=== PATIENT | female | born 1990 | race African-American/Black ===

== ENCOUNTER 2018-07-01 10:37 | Emergency (ER) | payer OTHER ==
[2018-07-01 10:49] VITALS: BP 121/66
[2018-07-01 11:21] LABS: BILIRUBIN,URINE NEGATIVE (NEGATIVE); CLARITY,URINE CLEAR (CLEAR); GLUCOSE, URINE (UA) NEGATIVE (NEGATIVE); KETONES,URINE (UA) NEGATIVE (NEGATIVE); LEUKOCYTE ESTERASE, URINE NEGATIVE (NEGATIVE); NITRITE,URINE NEGATIVE (NEGATIVE); OCCULT BLOOD,URINE NEGATIVE (NEGATIVE); PH,URINE 6.5 PH (5.0-7.5); PROTEIN,URINE NEGATIVE (NEGATIVE); UROBILINOGEN,URINE 0.2 (NORMAL) E.U./dL (NORMAL)
== END 2018-07-01 13:55 | disposition left against medical advice (07) ==
LOC: ED 10:37
DX: Z53.21 Procedure and treatment not carried out due to patient leaving prior to being seen by health care provider (principal)
CPT/HCPCS: 81001; 81003; 87086

== ENCOUNTER 2019-09-01 15:41 | Emergency (ER) | payer OTHER ==
[2019-09-01 16:52] LABS: BASOPHILS % (AUTO) 0.3 %; EOSINOPHILS # (AUTO) 0.1 10^3/uL (0.0-0.7); EOSINOPHILS % (AUTO) 1.6 %; HGB - HEMOGLOBIN 13.4 g/dL (12.0-16.0); LYMPHOCYTES # (AUTO) 0.9 10^3/uL (1.5-3.5); LYMPHOCYTES % (AUTO) 22.8 %; MEAN CORPUSCULAR HEMOGLOBIN 29.8 pg (27.0-31.0); MEAN CORPUSCULAR HGB CONC 32.1 g/dL (32.0-36.0); MEAN CORPUSCULAR VOLUME 92.9 fL (81.0-99.0); MEAN PLATELET VOLUME 9.9 fL (7.9-10.8); MONOCYTES # (AUTO) 0.3 10^3/uL (0.0-1.0); MONOCYTES % (AUTO) 6.9 %; NEUTROPHILS # (AUTO) 2.6 10^3/uL (1.5-6.6); NEUTROPHILS % (AUTO) 67.9 %; PLT - PLATELET COUNT 280 10^3/uL (130-450); RED BLOOD COUNT 4.49 10^6/uL (4.20-5.40); RED CELL DISTRIBUTION WIDTH 13.6 % (12.0-15.0); WHITE BLOOD COUNT 3.8 x10^3/uL (4.8-10.8)
[2019-09-01 17:05] LABS: ALBUMIN 4.1 g/dL (3.2-5.5); ALBUMIN/GLOBULIN RATIO 1.2 (1.0-2.2); BILIRUBIN,TOTAL 0.7 mg/dL (0.2-1.0); CREATININE 0.6 mg/dL (0.4-1.0); TOTAL PROTEIN 7.6 g/dL (6.7-8.2)
[2019-09-01 17:57] LABS: BILIRUBIN,URINE NEGATIVE (NEGATIVE); GLUCOSE, URINE (UA) NEGATIVE (NEGATIVE); KETONES,URINE (UA) NEGATIVE (NEGATIVE); LEUKOCYTE ESTERASE, URINE NEGATIVE (NEGATIVE); NITRITE,URINE NEGATIVE (NEGATIVE); OCCULT BLOOD,URINE NEGATIVE (NEGATIVE); PROTEIN,URINE NEGATIVE (NEGATIVE); UROBILINOGEN,URINE 0.2 (NORMAL) E.U./dL (NORMAL)
[2019-09-01 17:59] VITALS: BP 126/71
[2019-09-01 17:59] LABS: CLARITY,URINE CLEAR (CLEAR); HCG UR QUAL NEGATIVE
--- NOTE | 2019-09-01 18:19 | ED Physician Documentation ---
History of Present Illness - Stated complaint Stated Complaint: AB PX - Chief complaint Chief Complaint: Abd Pain - Additonal information Additional information: This is a 28-year-old female who presents with abdominal discomfort. For the l ast 24 hours she has had left upper quadrant crampy abdominal pain that has been associate with some nausea and episodes of diarrhea. She has had exposure to someone with gastroenteritis-like symptoms, With abdominal cramping, vomiting, and diarrhea. Patient has not had any fever. She denies any dysuria, no lower nominal discomfort. Her pain is not related to eating food. She has been able to eat, her appetite is slightly reduced. No blood in her stool. 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 - Present Medications Home Medications: Ambulatory Orders Medication Instructions Recorded Confirmed Dicyclomine [Bentyl] 10 mg PO TID PRN #15 capsule 09/01/19 Ondansetron Odt [Zofran] 4 mg TL Q6H PRN #10 tablet 09/01/19 - Allergies Allergies/Adverse Reactions: Allergies Allergy/AdvReac Type Severity Reaction Status Date / Time No Known Drug Allergies Allergy Verified 09/01/19 16:00 - Social History Does the pt smoke?: No Smoking Status: Never smoker Does the pt drink ETOH?: Yes Does the pt have substance abuse?: No - Immunizations Immunizations are current?: Yes - POLST Patient has POLST: No PD ED PE NORMAL - Vitals Vital signs reviewed: Yes - General General: Alert and oriented X 3, No acute distress - HEENT HEENT: PERRL - Neck Neck: Supple, no meningeal sign - Cardiac Cardiac: RRR, No murmur - Respiratory Respiratory: Clear bilaterally - Abdomen Abdomen: Normal bowel sounds, Soft, Other (Mild tenderness to palpation in the left upper quadrant, but only with deep palpation. There is no midepigastric, no right upper quadrant pain, negative Hood sign. No right lower quadrant tenderness. No guarding.) - Derm Derm: Warm and dry - Extremities Extremities: No deformity - Neuro Neuro: Alert and oriented X 3 - Psych Psych: Normal mood, Normal affect Results - Vitals Vitals: Vital Signs - 24 hr 09/01/19 09/01/19 15:56 17:57 Temperature 37.1 C 37.1 C Heart Rate 86 85 Respiratory 18 18 Rate Blood Pressure 143/72 H 126/71 O2 Saturation 98 97 Oxygen O2 Source Room air - Labs Labs: Laboratory Tests 09/01/19 09/01/19 09/01/19 16:48 16:48 17:50 WBC 3.8 L RBC 4.49 Hgb 13.4 Hct 41.7 MCV 92.9 MCH 29.8 MCHC 32.1 RDW 13.6 Plt Count 280 MPV 9.9 Neut # (Auto) 2.6 Lymph # (Auto) 0.9 L Hunt # (Auto) 0.3 Eos # (Auto) 0.1 Baso # (Auto) 0.0 Absolute Nucleated RBC 0.00 Nucleated RBC % 0.0 Sodium 137 Potassium 3.4 L Chloride 103 Carbon Dioxide 25 Anion Gap 9.0 BUN 11 Creatinine 0.6 Estimated GFR (MDRD) 143 Glucose 93 Calcium 9.0 Total Bilirubin 0.7 AST 23 ALT 25 Alkaline Phosphatase 69 Total Protein 7.6 Albumin 4.1 Globulin 3.5 Albumin/Globulin Ratio 1.2 Lipase 30 Urine Color YELLOW Urine Clarity CLEAR Urine pH 6.0 Ur Specific [place] 1.015 Urine Protein NEGATIVE Urine Glucose (UA) NEGATIVE Urine Ketones NEGATIVE Urine Occult Blood NEGATIVE Urine Nitrite NEGATIVE Urine Bilirubin NEGATIVE Urine Urobilinogen 0.2 (NORMAL) Ur Leukocyte Esterase NEGATIVE Ur Microscopic Review NOT INDICATED Urine Culture Comments NOT INDICATED Urine HCG, Qual NEGATIVE PD MEDICAL DECISION MAKING - ED course Complexity details: considered differential (Gastroenteritis, pancreatitis, pyelonephritis, gastritis) ED course: On arrival patient is very well-appearing, vital signs are unremarkable, her abdominal exam is quite benign, she has some mild tenderness in the left upper quadrant. Labs are drawn she has a slight leukopenia at 3.8, we do not have past values for comparison. Remainder of her blood counts are unremarkable. Her abdominal panel is unremarkable, there is a normal lipase, normal LFTs. Her urine is negative for infection, her hCG is also negative. Given her exposure to someone with gastroenteritis and her symptoms, I do feel like gastroenteritis is most likely. She does not have any focal tenderness in the right upper quadrant or lower quadrant. Her vital signs are reassuring her exam is unremarkable, and do not see signs of acute abdominal pathology at this time. I discussed careful observation with the patient, prescribed her Zofran, and discussed return precautions if she has worsening pain, pain that changes, or she is having other concerning symptoms. Patient agreed and was discharged home in the care of family Departure - Departure Disposition: Home, Self Care Clinical Impression: Abdominal pain Qualifiers: Abdominal location: left upper quadrant Qualified Code(s): R10.12 - Left upper quadrant pain Condition: Good Instructions: ED Abdominal Pain Unkn Cause Follow-Up: Ela Veloz MD [Primary Care Provider] - Within 1 week Prescriptions: Dicyclomine [Bentyl] 10 mg PO TID PRN #15 capsule PRN Reason: Abdominal Pain Ondansetron Odt [Zofran] 4 mg TL Q6H PRN #10 tablet PRN Reason: Nausea / Vomiting Comments: You were seen today for abdominal pain. Given your nausea or diarrhea and the location of your pain I think is likely you have a gastroenteritis. Your labs are reassuring at this time, your urine does not show signs of infection. If you are having worsening symptoms such as severe abdominal pain, pain that localizes to your right upper abdomen or right lower abdomen, blood in your vomit or stool, or vomiting despite the Zofran, return to the emergency department. Otherwise please follow-up with your primary care provider. Discharge Date/Time: 09/01/19 18:29
== END 2019-09-01 18:29 | disposition home or self-care (01) ==
LOC: ED 15:41
DX: R10.12 Left upper quadrant pain (principal); R11.0 Nausea; R19.7 Diarrhea, unspecified; D72.819 Decreased white blood cell count, unspecified
CPT/HCPCS: 36415; 80053; 81001; 81003; 81025; 83690; 85025; 87086; 99283

== ENCOUNTER 2020-04-21 19:27 | Outpatient (CLI) | payer OTHER | END 2020-04-21 19:28 | disposition home or self-care (01) | LOC: SC 19:27 | PROVIDERS: ATTEND Internal Medicine Pulmonary Disease | DX: R06.83 Snoring (principal); G47.10 Hypersomnia, unspecified; R41.89 Other symptoms and signs involving cognitive functions and awareness; G47.8 Other sleep disorders; R06.81 Apnea, not elsewhere classified | CPT/HCPCS: 95810 ==

== ENCOUNTER 2020-05-10 14:19 | Outpatient (CLI) | payer OTHER ==
--- NOTE | 2020-05-10 14:44 | SLEEP CARE CONSULTATION ---
Information from patient questionnaire entered by Rosita Quinonez. I have reviewed and concur with the information entered by Rosita Quinonez. This document represents the service I personally performed and the decisions made by me, Kayce Villa MD, [facility]. History of Present Illness Service Date and Time: 05/10/2020 1419 Initial [place] Sleepiness Scale score: 8 (in 2019) Current [place] Sleepiness Scale score: 10 Additional HPI information: HPI: Ms. Mary returned for a follow up of the sleep study she had on 04/21/2020. The polysomnography showed that the patient had normal sleep efficiency. The sleep architecture was normal as well. Respiratory monitoring showed no significant sleep disordered breathing (AHI = 4.2) or hypoxia (weston oxygen saturation of 91%). The few respiratory events occurred almost exclusively during supine sleep (supine AHI = 18.0; non-supine = 1.58). Snore was moderate to loud in intensity. There was no significant periodic leg movement of sleep. Cardiac rhythm was normal sinus rhythm without significant arrhythmia. No abnormal behavior (parasomnia) observed during the night. The patient was informed of these findings. I explained to her that the sleep study was normal overall. Sleep Study - Results Type of Sleep Study: Polysomnography Prior sleep studies: No Allergies and Home Medications Drug allergies reviewed: Yes Home medication list reviewed: Yes Physical Exam Height: 5 ft 5 in Weight: 175 lb Body Mass Index: 29.1 BMI Classification: Overweight Impression and Plan IMPRESSION: 1. Primary Snore (ICD-10 R06.83), light to loud, but no significant sleep disordered breathing except when the patient slept supine. The patient is recommended to avoid sleeping supine. She states that she might soon have to sleep on her back because she is developing some nerve problem in her arm. PLAN: 1. Avoid sleeping supine. 2. Avoid weight and avoid alcohol consumption near bedtime. 3 Return for follow up on as needed basis. Return if she gains weight or has to sleep on her back at night. Visit Type: In Office Provider Statement: I spent 100% of the Face to Face Visit with the patient with greater than 50% spent counseling the patient and coordination of care.
== END 2020-05-10 14:20 | disposition home or self-care (01) ==
LOC: SC 14:19
PROVIDERS: ATTEND Internal Medicine Pulmonary Disease
DX: R06.83 Snoring (principal); E66.3 Overweight; Z68.29 Body mass index [BMI] 29.0-29.9, adult
CPT/HCPCS: 99212; 99213

== ENCOUNTER 2020-06-14 16:37 | Outpatient (CLI) | payer OTHER | END 2020-06-14 16:38 | disposition home or self-care (01) | LOC: COV 16:37 | PROVIDERS: ATTEND Family Medicine | DX: R05 Cough (principal); M79.10 Myalgia, unspecified site; R53.83 Other fatigue; J02.9 Acute pharyngitis, unspecified; R09.81 Nasal congestion; Z20.828 Contact with and (suspected) exposure to other viral communicable diseases ==

== ENCOUNTER 2021-03-22 15:56 | Emergency (ER) | payer OTHER ==
--- NOTE | 2021-03-22 16:16 | ED Physician Documentation ---
PD HPI HEENT - Stated complaint Stated Complaint: FOREIGN BODY IN THROAT - Chief complaint Chief Complaint: Heent - History obtained from History obtained from: Patient - Additional information Additional information: About 4 days ago felt like a fishbone got stuck on the right side of her throat but then subsequently passed it. 2 days ago started developed a sore throat and fullness in the throat and she wonders if there might still be something there. She is also had chills with this. Tested Covid and got results today which were negative. 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 - Present Medications Home Medications: Ambulatory Orders Medication Instructions Recorded Confirmed Sertraline [Zoloft] 50 mg PO DAILY 03/22/21 03/22/21 - Allergies Allergies/Adverse Reactions: Allergies Allergy/AdvReac Type Severity Reaction Status Date / Time No Known Drug Allergies Allergy Verified 03/22/21 15:59 - Social History Does the pt smoke?: No Smoking Status: Never smoker Does the pt drink ETOH?: Yes Does the pt have substance abuse?: No - Immunizations Immunizations are current?: Yes - POLST Patient has POLST: No PD ED PE NORMAL - Vitals Vital signs reviewed: Yes - General General: Alert and oriented X 3, No acute distress - HEENT HEENT: Other (Exudative tonsillitis with moderate anterior cervical adenopathy) - Neck Neck: Supple, no meningeal sign, No bony TTP - Neuro Neuro: Alert and oriented X 3, Normal speech Results - Vitals Vitals: Vital Signs - 24 hr 03/22/21 03/22/21 15:59 17:06 Temperature 36.6 C 37.7 C Heart Rate 98 95 Respiratory 16 16 Rate Blood Pressure 140/77 H 128/80 O2 Saturation 99 99 Oxygen O2 Source Room air - Labs Labs: Laboratory Tests 03/22/21 16:35 Group A Strep Rapid Negative - Rads (name of study) Soft tissue neck x-ray Radiology: EMP read contemporaneously PD MEDICAL DECISION MAKING - ED course ED course: The time course and appearance of her throat would suggest more of an infectious etiology for the pharyngitis than traumatic. Departure - Departure Disposition: 01 Home, Self Care Clinical Impression: Acute pharyngitis Qualifiers: Pharyngitis/tonsillitis etiology: unspecified etiology Qualified Code(s): J02.9 - Acute pharyngitis, unspecified Condition: Good Record reviewed to determine appropriate education?: Yes Instructions: ED Pharyngitis Viral Report Pending Comments: As discussed, your rapid strep test is negative, I would not be surprised if the culture grows strep though and in that case we will call you in a couple of days call you in antibiotics. In the meantime Tylenol and/or ibuprofen as needed for the pain. Discharge Date/Time: 03/22/21 17:23
--- NOTE | 2021-03-22 16:37 | XRAY Report ---
PROCEDURE: Neck Soft Tissue INDICATIONS: POSS FISHBONE / FB SENSATION TECHNIQUE: 2 views of the neck were acquired. COMPARISON: None FINDINGS: Airway: The airway appears patent. Soft tissues: Prevertebral soft tissues are normal in thickness. The epiglottis and aryepiglottic f olds appear normal. No soft tissue gas. Bones: No suspicious bony lesions. Visualized cervical spine is normally aligned. No radiodense for eign body identified. IMPRESSION: No radiodense foreign body identified. If there is continued clinical concern for swallowed foreign b jodee, CT scan of the neck should be considered for further evaluation. Reviewed by: Serenity Carmona MD, PhD on 03/22/2021 4:36 PM PDT Approved by: Serenity Carmona MD, PhD on 03/22/2021 4:36 PM PDT Station ID: [id number]
[2021-03-22 16:47] LABS: RAPID STREP SCREEN Negative (Negative)
[2021-03-22 17:07] VITALS: BP 128/80
== END 2021-03-22 17:23 | disposition home or self-care (01) ==
LOC: ED 15:56
DX: J02.9 Acute pharyngitis, unspecified (principal)
CPT/HCPCS: 87070; 87077; 87430; 99283

== ENCOUNTER 2021-08-28 08:00 | Outpatient (CLI) | payer OTHER | END 2021-08-28 23:59 | LOC: LAB.N 08:00 | PROVIDERS: ATTEND Registered Nurse | DX: J02.9 Acute pharyngitis, unspecified (principal); R09.81 Nasal congestion; Z20.822 Contact with and (suspected) exposure to COVID-19 | CPT/HCPCS: 87070; 87275; 87276 ==

== ENCOUNTER 2021-12-19 17:25 | Emergency (ER) | payer OTHER ==
[2021-12-19] MEDS ORDERED: PSEUDOEPHEDRINE 30 MG TABLET PO STA (17:45)
[2021-12-19] MEDS ORDERED: SUMAtriptan 6 MG/0.5 ML VIAL SUBQ STA (17:45)
--- NOTE | 2021-12-19 17:56 | ED Physician Documentation ---
PD HPI HEADACHE - Stated complaint Stated Complaint: HEADACHE - Chief complaint Chief Complaint: Neuro - History obtained from History obtained from: Patient - History of Present Illness Timing - onset: How many weeks ago (2) Timing - onset during: Rest Timing - duration: Weeks (2) Timing - details: Gradual onset Pain level max: 8 Pain level now: 3 Location: Front Quality: Throbbing, Aching. No: Thunderclap, Like head is exploding Associated symptoms: Nausea. No: Fever, Stiff neck, Vomiting, Weakness, Numbness, Syncope, Seizure, Eye pain, Vision changes Improved by: Rest Worsened by: Other (bending over, coughing, sneezing.) Contributing factors: No: Anticoagulated, Possible carbon monoxide, Hypertension, Recent illness, Trauma Similar symptoms before: Diagnosis (has had migraines, this feels different.) Review of Systems Constitutional: denies: Fever, Chills Nose: reports: Sinus pressure / pain. 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 - Present Medications Home Medications: Ambulatory Orders Medication Instructions Recorded Confirmed Sertraline [Zoloft] 50 mg PO DAILY 03/22/21 12/19/21 Norelgestromin/Ethin.estradiol 1 patch TD Q7D 12/19/21 12/19/21 [Xulane 150-35 Mcg/Day Patch] buPROPion [Wellbutrin Sr] 100 mg PO DAILY 12/19/21 12/19/21 - Allergies Allergies/Adverse Reactions: Allergies Allergy/AdvReac Type Severity Reaction Status Date / Time No Known Drug Allergies Allergy Verified 12/19/21 17:32 - Social History Does the pt smoke?: No Smoking Status: Never smoker Does the pt drink ETOH?: Yes Does the pt have substance abuse?: No - Immunizations Immunizations are current?: Yes - POLST Patient has POLST: No PD ED PE NORMAL - Vitals Vital signs reviewed: Yes - General General: Alert and oriented X 3, No acute distress - HEENT HEENT: Atraumatic, PERRL, Ears normal, Moist mucous membranes, Pharynx benign, Other (Tender palpation over the frontal sinuses.) - Neck Neck: Supple, no meningeal sign - Cardiac Cardiac: RRR, Strong equal pulses - Respiratory Respiratory: No respiratory distress, Clear bilaterally - Abdomen Abdomen: Soft, Non tender, Non distended - Derm Derm: Warm and dry, No rash - Extremities Extremities: No edema - Neuro Neuro: Alert and oriented X 3, 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, No motor deficit, No sensory deficit, Normal speech, Other (Normal cerebellar test) Eye Opening: Spontaneous Motor: Obeys Commands Verbal: Oriented GCS Score: 15 - Psych Psych: Normal mood, Normal affect Results - Vitals Vitals: Vital Signs - 24 hr 12/19/21 12/19/21 17:29 17:32 Temperature 36.3 C L 36.5 C Heart Rate 84 84 Respiratory 16 16 Rate Blood Pressure 143/90 H 143/90 H O2 Saturation 100 100 Oxygen O2 Source Room air - Rads (name of study) Head CT Radiology: Final report received, EMP read contemporaneously, See rad report (No acute abnormality) PD MEDICAL DECISION MAKING - ED course Complexity details: reviewed results, re-evaluated patient, considered differential, d/w patient ED course: Headache resolved with Imitrex and pseudoephedrine. Head CT does not show any acute abnormalities. No evidence of tumor, mass, infection, subarachnoid hemorrhage. She has an appoint with her doctor in 3 days. She will continue Motrin and Tylenol as needed. She will follow-up with her doctor for further care. Patient counseled regarding signs and symptoms for which I believe and urgent re-evaluation would be necessary. Patient with good understanding of and agreement to plan and is comfortable going home at this time This document was made in part using voice recognition software. While efforts are made to proofread this document, sound alike and grammatical errors may occur. Departure - Departure Disposition: 01 Home, Self Care Clinical Impression: Headache Qualifiers: Headache type: unspecified Headache chronicity pattern: unspecified pattern Intractability: not intractable Qualified Code(s): R51.9 - Headache, unspecified Condition: Good Instructions: ED Cephalgia Unspecified Follow-Up: Ela Veloz MD [Primary Care Provider] - Within 1 week Comments: Your head CT does not show any acute abnormalities today. Your headache seems to have resolved with pseudoephedrine and Imitrex. This could be a migraine type headache, but it could also be related to acute sinus inflammation. Please follow-up with your doctor for further care. Return if you worsen.
--- NOTE | 2021-12-19 18:39 | CT Report ---
PROCEDURE: HEAD WO INDICATIONS: frontal headache x 2 weeks TECHNIQUE: Noncontrast 4.5 mm thick angled axial sections acquired from the foramen magnum to the vertex. For r adiation dose reduction, the following was used: automated exposure control, adjustment of mA and/or kV according to patient size. COMPARISON: None. FINDINGS: Image quality: Excellent. CSF spaces: Basal cisterns are patent. No extra-axial fluid collections. Ventricles are normal in size and shape. Brain: No midline shift. No intracranial masses or hemorrhage. Carrion-white matter interface is norm al. Skull and face: Calvarium and visualized facial bones are intact, without suspicious lesions. Sinuses: Visualized sinuses and mastoids are clear. IMPRESSION: 1. No acute intracranial process. Reviewed by: Ashely Fontenot MD on 12/19/2021 5:38 PM AKARNULFO Approved by: Ashely Fontenot MD on 12/19/2021 5:38 PM AKARNULFO Station ID: [id number]
[2021-12-19 18:54] VITALS: BP 130/88
== END 2021-12-19 18:53 | disposition home or self-care (01) ==
LOC: ED 17:25
DX: R51.9 Headache, unspecified (principal)
CPT/HCPCS: 70450; 96372; 99282; 99284; A9270

== ENCOUNTER 2023-03-12 16:06 | Outpatient (CLI) | payer OTHER ==
--- NOTE | 2023-03-12 16:38 | Sleep Patient Instructions ---
Sleep Center Visit Summary - Patient Visit Information Reason for Visit: Followup in Sleep Center - Patient Instructions Instructions Attached: Sleep Study, Sleep Clinic Visit, Sleep Study Home Monitor Additional Instructions: You will be completing a sleep study, either an in-lab polysomnography (PSG) or home sleep study (HST). You will follow-up in the sleep care office after the sleep study is completed to hear the results and talk about therapy, if needed. You will be called by our office staff to schedule this appointment, but you may contact us with any questions. - Clinic Information Contact: [facility] [address] [place] [address] [email or web address] T: [phone]
--- NOTE | 2023-03-12 16:45 | SLEEP CARE CONSULTATION ---
Information from patient questionnaire entered by Raya Tolentino. I have reviewed and concur with the information entered by Raya Tolentino. This document represents the service I personally performed and the decisions made by , Vashti Willoughby ARNP. History of Present Illness Service Date and Time: 03/12/2023 1606 Reason for follow up: annual (LAST SEEN 04/2020 NO CPAP) Prior sleep studies: No Type of Sleep Study: Polysomnography HPI additional information: SELAM GALVEZ was last seen in April 2020 following a sleep study showing no significant sleep disordered breathing (AHI 4.2, weston 91% and supine AHI 18) and returned today for annual follow-up. Her current complaint is snoring, observed pauses in breathing, unrefreshed sleep. The patient tells me that she normally goes to bed around 9-10:30 pm, and it takes her approximately 3-5 minutes to fall asleep. She has= been told that she snores loudly and irregularly at night. She has been observed to stop breathing in her sleep. Her bed partner can still sleep in the same bed. She can recall waking up on the average of 2 times during the night. Most of the time she wakes up because of bathroom. She has not awakened for her own snoring, choking, and having to gasp for air. There is not a lot of tossing and turning in her sleep. Generally she can recall having dreams. She usually wakes up at 0500 and does not feel refreshed. She usually does not have a morning headache. During the day she complains of feeling sleepy and fatigued. She has fallen asleep while driving and has gone out of the heather, no accident. She usually does not take naps during the day. If she naps, upon falling asleep during the day she denies having vivid dreams. She reports having impaired concentration during the day. There is no somniloquy (sleep talking) or somnambulism (sleep walking). She has never experienced sleep paralysis, cataplexy, or symptoms of restless leg syndrome. Sleep Study - Results Type of Sleep Study: Polysomnography Prior sleep studies: No Subjective Initial [place] Sleepiness Scale score: 8 (in 2019) Current [place] Sleepiness Scale score: 15 (03/12/23) Allergies and Home Medications Known drug allergies: No Drug allergies reviewed: Yes Home medication list reviewed: Yes (Sertraline 100 mg daily) Allergy and home medication list: Allergies No Known Drug Allergies Allergy (Verified 03/11/23 15:36) Review of Systems Review of systems same as previous: No (anxiety) Weight gain over past 5 years: 25 Cardiovascular: denies: high blood pressure Gastrointestinal: denies: heartburn Neurological: denies: headaches Psychiatric: denies: depression Ear/Nose/Throat: reports: wisdom teeth removed. denies: tonsillectomy Immunologic: reports: allergies to food or environment (bee stings, nickel) Physical Exam Vital signs obtained and entered by: RAYA Reyes MA Blood Pressure: 124/68 (LEFT ARM) Cuff size: regular Heart Rate: 66 O2 Saturation: 99 Height: 5 ft 5 in Weight: 194 lb 3.2 oz Body Mass Index: 32.3 BMI Classification: Obese Impression and Plan 1. Suspected Obstructive Sleep Apnea-Hypopnea Syndrome, as loud and irregular snoring, observed cessation of breath while asleep, gasping or choking in sleep and unrefreshed sleep. She states her symptoms have not improved and she has gained 25 pounds. I recommend proceeding to polysomnography to confirm the diagnosis and to assess severity. If the patient has significant sleep disordered breathing, a manual CPAP titration study will also be performed to find the optimal treatment pressure. I informed the patient of what the sleep studies involve and after some discussion, obtained agreement to proceed. The pathophysiology of obstructive sleep apnea-hypopnea syndrome was discussed with the patient and health risks of cardiovascular and cerebrovascular disease if not treated. Risks of drowsy driving discussed in detail and patient advised to avoid long distance driving and to nail puller at the first sign of drowsiness. Patient agreed to plan. 2. Obesity, unspecified. Currently patients BMI is 32.3. Obesity increases the risk of apnea, CPAP pressure requirements and overall health risks especially cardiovascular and diabetes. Thus patient is advised to lose weight. * Schedule polysomnography * Avoid long distance driving or driving when feeling sleepy. * Avoid alcohol, sedative and muscle relaxant around bedtime. * Attempt to lose weight. * Review instructions provided by trained office staff on how to prepare for the sleep study. * Return for follow-up after sleep study completed. Counseling Topics: Weight loss health impact Visit Type: In Office Time Spent with Patient (minutes): 21 Provider Statement: I spent 100% of the Face to Face Visit with the patient with greater than 50% spent counseling the patient and coordination of care.
[2023-03-12 16:58] VITALS: BP 124/68
== END 2023-03-12 16:07 | disposition home or self-care (01) ==
LOC: SC 16:06
PROVIDERS: ATTEND Nurse Practitioner Family
DX: R06.83 Snoring (principal); R06.81 Apnea, not elsewhere classified; G47.8 Other sleep disorders; E66.9 Obesity, unspecified; Z68.32 Body mass index [BMI] 32.0-32.9, adult
CPT/HCPCS: 99212; 99213

== ENCOUNTER 2023-04-08 20:55 | Outpatient (CLI) | payer OTHER | END 2023-04-08 20:56 | disposition home or self-care (01) | LOC: SC 20:55 | PROVIDERS: ATTEND Nurse Practitioner Family | DX: G47.33 Obstructive sleep apnea (adult) (pediatric) (principal) | CPT/HCPCS: 95810 ==

== ENCOUNTER 2023-05-01 16:13 | Outpatient (CLI) | payer OTHER ==
--- NOTE | 2023-05-01 16:00 | SLEEP CARE CONSULTATION ---
Information from patient questionnaire entered by Raya Tolentino. I have reviewed and concur with the information entered by Raya Tolentino. This document represents the service I personally performed and the decisions made by me, Vashti Willoughby ARNP. History of Present Illness Service Date and Time: 05/01/2023 1540 Initial [place] Sleepiness Scale score: 8 (in 2019) Current [place] Sleepiness Scale score: 14 Additional HPI information: SELAM GALVEZ returns via video telehealth visit for follow up and results of the recently performed polysomnography. Her sleep study showed severe obstructive sleep apnea with an average AHI of 35.4 and weston oxygen saturation of 83%. I explained the pathophysiology behind obstructive sleep apnea. We then spent quite a bit of time discussing different treatment options. For mild obstructive sleep apnea, surgery and oral appliance are alternatives to nasal CPAP therapy but in moderate or severe cases, nasal CPAP is the most effective and reliable treatment. I reviewed the impact of weight changes on sleep apnea and strongly recommended losing weight. After some discussion, the patient opted to go with the nasal CPAP therapy. Nasal autoCPAP set at 4-15 cmH20 will be ordered with rationale explained. A manual titration study will be ordered if unable to find optimal pressure with office adjustments. I explained how CPAP machine works and what to expect when using the machine. Using CPAP every night in order to get used to it was emphasized. Patient advised to put CPAP mask on before getting into bed so as not to fall asleep without CPAP. To assist acclimation to CPAP use, it could also be used for a short time during day while reading or watching TV. The patient was instructed to call the CPAP supplier to discuss any mechanical problem that may occur. If the mask given is uncomfortable or is difficult to keep on through the night even with adjustment, contact the CPAP supplier as many will replace with another mask style if notified before 30 days. If snoring or perceives is not getting enough air or too much air from the machine, notify this office. Patient counseled not drink alcohol less than 4 hours before bedtime as it can increase snoring and apnea. Patient was cautioned about risks of drowsy driving until sleepiness symptoms resolve. Sleep Study - Results Type of Sleep Study: Polysomnography (COMPLETED 04/08/23) Prior sleep studies: No Polysomnography/Home Sleep Study results: IMPRESSION: The quality of the study is good. The patient had normal sleep efficiency. The sleep architecture was abnormal for sleep fragmentation and reduced amount of time spent in slow wave sleep (N3).. Respiratory monitoring showed severe obstructive sleep apnea-hypopnea (AHI = 35.4) associated with frequent arousals, oxyhemoglobin desaturation and mild hypoxia (weston oxygen saturation of 83%). The patient did not sleep supine during this study (supine AHI = N/A; non-supine = 35.38). Snore was moderate to loud in intensity. There was no significant periodic leg movement of sleep. Cardiac rhythm was normal sinus rhythm without significant arrhythmia. No abnormal behavior (parasomnia) observed during the night. Allergies and Home Medications Known drug allergies: No (allergies as listed) Drug allergies reviewed: Yes Home medication list reviewed: Yes (no changes) Allergy and home medication list: Allergies nickel Allergy (Verified 04/30/23 14:22) BEE STING Allergy (Uncoded 04/30/23 14:22) Review of Systems Review of systems same as previous: Yes (no changes) Physical Exam Vital signs obtained and entered by: RAYA Reyes MA Height: 5 ft 5 in Weight: 190 lb Body Mass Index: 31.6 BMI Classification: Obese Impression and Plan 1. Obstructive Sleep Apnea-Hypopnea Syndrome, severe, with lowest oxygen satu ration of 83%. Obviously this is the cause of the patients symptoms of unrefreshed sleep, and excessive daytime sleepiness. Positive pressure therapy could benefit attention deficit, gastric reflux and anxiety. As mentioned above, the patient will be started on nasal autoCPAP therapy with pressure set at 4-15 cmH2O. A manual titration study will be completed if unable to find optimal treatment pressure with office adjustments. Compliance guidelines also reviewed. A copy of compliance guidelines will be given for reference at check out. Because the apnea is more severe supine, I instructed to avoid sleeping supine using pillow positioning until able to start CPAP use. 2. Hypoxemia, mild, with a weston oxygen saturation of 83% and 6.5 minutes spent under 90%. Her baseline oxygen saturation was normal with an average oxygen saturation of 94%. * Nasal auto CPAP therapy, pressure at 4-15 cm H2O. * Attempt to lose weight. * Avoid alcohol consumption near bedtime. * Avoid supine sleep until using CPAP. * The patient is again cautioned about driving until sleepiness completely resolves. * Return one month after CPAP obtained. I will assess response to therapy and compliance at that time. Counseling Topics: Weight loss health impact Prescriptions: Auto CPAP Visit Type: Telehealth Video Video Type: Doximity Patient Location: work Location of Provider: Office Patient agrees and consents to this telehealth visit type: Yes Patient agrees to have their insurance billed: Yes Time Spent with Patient (minutes): 14 Provider Statement: I spent 100% of the Telehealth Video Call with the patient with greater than 50% spent counseling the patient and coordination of care.
== END 2023-05-01 16:14 | disposition home or self-care (01) ==
LOC: SC 16:13
PROVIDERS: ATTEND Nurse Practitioner Family
DX: G47.33 Obstructive sleep apnea (adult) (pediatric) (principal); R09.02 Hypoxemia; E66.9 Obesity, unspecified; Z68.31 Body mass index [BMI] 31.0-31.9, adult

== ENCOUNTER 2023-06-17 15:24 | Emergency (ER) | payer OTHER ==
[2023-06-17 15:38] VITALS: O2SAT 100
--- NOTE | 2023-06-17 16:55 | ED Physician Documentation ---
PD HPI FOCAL NEURO - Stated complaint Stated Complaint: R FACIAL NUMBNESS - Chief complaint Chief Complaint: Neuro - History obtained from History obtained from: Patient - History of Present Illness Timing - onset: How many days ago (onset 3 days ago with pain around right ear, just in front and behind, that has spread to area of right lateral neck. Some pain with movement and touch in area. No rash. Today having onset and increase in right facial weakness. Noted unable to taste right side of tongue as well. No other weaknesses.) Timing - duration: Days (pain in periauricular area for 3 days increasing, but weakness of face just today.) Timing - details: Gradual onset Severity of deficit: Moderate Weakness: Face, Right. No: Arm, Hand, Leg Numbness: No: Face, Arm, Hand, Leg Associated symptoms: Headache (facial pain right periauricular aea and lateral neck) Baseline status: positive: A&OX3, ambulatory, indep Similar symptoms before: Has not had sx before Review of Systems Constitutional: denies: Fever, Chills Eyes: denies: Loss of vision, Decreased vision Ears: reports: Ear pain Nose: denies: Rhinorrhea / runny nose, Congestion Throat: denies: Sore throat Respiratory: denies: Cough Skin: denies: Rash, Lesions Neurologic: reports: Focal weakness (just right face including forehead, opening and closing eye.). denies: Numbness, Difficulty speaking PD PAST MEDICAL HISTORY - Past Medical History Cardiovascular: None Respiratory: None Neuro: Migraines Endocrine/Autoimmune: None GI: None ROLL OPERATOR: None : None HEENT: None Psych: Anxiety Musculoskeletal: None Derm: None - Past Surgical History Past Surgical History: Yes /ROLL OPERATOR: section - Present Medications Home Medications: Ambulatory Orders Medication Instructions Recorded Confirmed Sertraline [Zoloft] 50 mg PO DAILY 03/22/21 03/12/23 Multivitamin See Rx Instructions .ROUTE .COMPLEX 03/12/23 03/12/23 Valacyclovir HCl [Valtrex] 1,000 mg PO TID 7 Days #20 tablet 06/17/23 dexAMETHasone [Decadron] 4 mg PO DAILY #7 tablet 06/17/23 - Allergies Allergies/Adverse Reactions: Allergies Allergy/AdvReac Type Severity Reaction Status Date / Time nickel Allergy Verified 04/30/23 14:22 BEE STING Allergy Uncoded 04/30/23 14:22 - Social History Does the pt smoke?: No Smoking Status: Never smoker Does the pt drink ETOH?: Yes Does the pt have substance abuse?: No - Immunizations Immunizations are current?: Yes - POLST Patient has POLST: No PD ED PE NORMAL - Vitals Vital signs reviewed: Yes - General General: Alert and oriented X 3, No acute distress, Well developed/nourished - HEENT HEENT: PERRL, EOMI, Ears normal (no skin lesions, normal TM and canal. There is skin tenderness outer canal and behind ear down to upper SCM area. ), Pharynx benign, Dentition benign (no dental tenderness nor gum swelling. ) - Neck Neck: Supple, no meningeal sign, No adenopathy - Cardiac Cardiac: RRR, No murmur - Respiratory Respiratory: Clear bilaterally - Derm Derm: Normal color, Warm and dry, No rash - Neuro Neuro: Alert and oriented X 3, No sensory deficit, Normal speech. No: ribbon tier 2-12 intact (right face with weakness/palsy including right forehead.) Results - Vitals Vitals: Vital Signs - 24 hr 06/17/23 06/17/23 15:26 17:37 Temperature 37 C 37 C Heart Rate 79 70 Respiratory 20 16 Rate Blood Pressure 175/102 H 167/97 H O2 Saturation 100 100 Oxygen O2 Source Room air PD Medical Decision Making - ED course Complexity details: considered differential (right facial nerve palsy. She has had facial pain right side and there is some skin tenderness so I presume process like shingles/herpetic. Does not have character of migraine with symptoms and duration/progression. Not having headache per se but is facial. Considered but do not see need for imaging), d/w patient Departure - Departure Disposition: 01 Home, Self Care Clinical Impression: Facial palsy, Posterior auricular pain of right ear Condition: Stable Record reviewed to determine appropriate education?: Yes Instructions: ED [place] Palsy Follow-Up: Ela Veloz MD [Primary Care Provider] - Prescriptions: dexAMETHasone [Decadron] 4 mg PO DAILY #7 tablet Valacyclovir HCl [Valtrex] 1,000 mg PO TID 7 Days #20 tablet Comments: This looks like an inflammatory or effect of the facial nerve on the right side. Given the pain that you are having and some skin sensitivity, I would be concern for a viral etiology such as HSV or developing shingles. As such it would be common to actually treat a Raphael palsy with both steroid anti-inflammatory to decrease the irritation of the nerve and is commonly recommended to do an antiviral medication given the association of it with herpetic type viruses. I prescribed Decadron steroid daily for the next week and valacyclovir 3 times a day for the next week. To that add Tylenol 500 to 650 mg every 4-6 hours if needed for pain. You will find more liquid intake will be difficult such as water and fluids. People often find thickened or semisoft foods to be easier to keep in the mouth and swallow in association with the weakness on the corner of the mouth. Do your best and see what works best for you. You can probably find information online as well. For the eye, I would recommend lubricating eyedrops such as Lacri-Lube or artificial tears type of moisturizing eyedrops frequently through the day as your eye will get dried out from incomplete closure. If you do find it irritating enough with not closing, you can tape it gently closed for parts of the time. I sent your prescriptions to your preferred pharmacy. The onset to maximum degree of weakness is often 3 to 6 days in development and it can often take 2 to 3 weeks for resolution of the weakness. Hopefully will be sooner with the treatment. Forms: PCP List Discharge Date/Time: 06/17/23 17:38
[2023-06-17] MEDS ORDERED: valACYclovir 500 MG TABLET PO STA (17:19)
[2023-06-17] MEDS ORDERED: dexAMETHasone 4 MG TABLET PO STA (17:19)
[2023-06-17] MEDS ORDERED: ACETAMINOPHEN 325 MG TABLET PO STA (17:20)
[2023-06-17 17:45] VITALS: BP 167/97
== END 2023-06-17 17:38 | disposition home or self-care (01) ==
LOC: ED 15:24
DX: G51.0 Bell's palsy (principal); H92.01 Otalgia, right ear
CPT/HCPCS: 99282; 99283; A9270; J8540

== ENCOUNTER 2023-08-23 10:05 | Outpatient (CLI) | payer OTHER ==
--- NOTE | 2023-08-23 10:39 | Sleep Patient Instructions ---
Sleep Center Visit Summary - Patient Visit Information Reason for Visit: First Compliance for PAP therapy - Patient Instructions Additional Instructions: You were here for follow up of CPAP therapy. You will be continued on CPAP therapy with pressure at 9-11 cmH2O. Please let us know if the pressure change is uncomfortable and we can make further adjustments of the pressure. I have added the change in mask to your prescription to the nasal pillows mask. You should follow up with sleep care in 1-2 months. You may contact us sooner for any questions or concerns. - Clinic Information Contact: [facility] [address] [place] [address] [email or web address] T: [phone]
--- NOTE | 2023-08-23 10:42 | SLEEP CARE CONSULTATION ---
Information from patient questionnaire entered by Raya Tolentino. I have reviewed and concur with the information entered by Raya Tolentino. This document represents the service I personally performed and the decisions made by me, Vashti Willoughby ARNP. History of Present Illness Service Date and Time: 08/23/2023 1005 Previous diagnosis: Severe, Obstructive Sleep Apnea-Hypopnea Syndrome AHI: 35.4 (03/2023) Reason for follow up: first compliance Equipment type: CPAP (MARLENI G3) Equipment obtained from: Other ([facility]; getting supplies) Mask style: Nasal pillows Mask brand: Respironics (Dreamwear) Backup mask available: No (will keep old mask when replaced) Last cushion change: almost 2 months Prior sleep studies: No Type of Sleep Study: Polysomnography (COMPLETED 04/08/23) HPI additional information: SELAM GALVEZ was diagnosed to have severe, AHI 35.4, obstructive sleep apnea- hypopnea syndrome and returned today for CPAP therapy first compliance follow- up. Sleep Study - Results Type of Sleep Study: Polysomnography (COMPLETED 04/08/23) Prior sleep studies: No CPAP Compliance Data - Data Reviewed with Patient Average duration of nightly device use: 4 HRS 59 MINS Compliance rate %: 73.3 (07/09/23-08/07/23; days used) Current pressure setting (cmH2O): 4-15 (avg 7, P95 9.2) Average residual AHI: 3.1 Central apnea: 0.3 Obstructive apnea: 2.6 Average large leak: 1 minutes Subjective Patient concerns: reports: mask discomfort (better with nasal pillows mask), mask leak noise (sometimes). denies: aerophagia, air blowing in eyes, condensation in mask/hose, nasal congestion, dry mouth, nose, throat, epistaxis Observed to snore while using device: No Current pressure setting perceived as: comfortable On therapy, patient: reports: sleeping better, awakening more refreshed, being more awake and alert during the day, more rested overall, other (easier to get up in morning). denies: drowsiness while driving Initial [place] Sleepiness Scale score: 8 (in 2019) Current [place] Sleepiness Scale score: 12 (08/23/23) Allergies and Home Medications Known drug allergies: No (as listed) Drug allergies reviewed: Yes Home medication list reviewed: Yes (sertraline) Allergy and home medication list: Allergies nickel Allergy (Verified 08/21/23 11:39) BEE STING Allergy (Uncoded 08/21/23 11:39) Review of Systems Review of systems same as previous: Yes (NO CHANGE) Physical Exam Vital signs obtained and entered by: RAYA Reyes MA Blood Pressure: 150/97 (LEFT ARM) Cuff size: regular Heart Rate: 75 O2 Saturation: 100 Height: 5 ft 5 in Weight: 196 lb 9.6 oz Body Mass Index: 32.7 BMI Classification: Obese Impression and Plan 1. Obstructive Sleep Apnea-Hypopnea Syndrome, severe, with good treatment compliance and good apnea control. On CPAP therapy, the patient has better sleep quality and is more rested overall. She has noticed that she is not having the drowsy driving episodes like she did before starting the CPAP. She denies any significant complaints or issues with using the CPAP. She did start with an over the nose nasal cushion that she did not find comfortable. She had a friend to give her a nasal pillows mask set up that she really likes much better. It is a Tae AzuroWear nasal pillows mask. She feels she could use a little more air when she puts the mask on. I will increase her ramp pressure to 5 cmH2O. The patients pressure will be changed to autoCPAP 9-11 cmH20 to reflect pressure being used. Patient advised to contact me if pressure change is uncomfortable so that it can be adjusted. Goals for apnea control discussed. Patient's apnea severity and rationale for treatment to reduce apnea, improve sleep quality and reduce cardiovascular and cerebrovascular events was reviewed. I also reviewed the benefit of consistent device use of CPAP for gastric reflux, anxiety and attention deficit. 2. Obesity, unspecified. Currently patients BMI is 32.7. Obesity increases the risk of apnea, CPAP pressure requirements and overall health risks especially cardiovascular and diabetes. Thus patient is advised to lose weight. * Change auto CPAP pressure to 9-11 cmH2O * Increase ramp starting pressure to 5 cmH2O for air hunger * Change mask to nasal pillows mask, Dreamwear * Notify me if snoring with mask or feeling that the pressure is too much or too little * Attempt to lose weight * Call this office if any problems using CPAP * Return for follow up in 1-2 months, or sooner if concerns arise Adjust device pressure to (cmH2O): 9-11 Counseling Topics: Spare mask, Weight loss health impact Visit Type: In Office Time Spent with Patient (minutes): 22 Provider Statement: I spent 100% of the Face to Face Visit with the patient with greater than 50% spent counseling the patient and coordination of care.
[2023-08-23 10:45] VITALS: BP 150/97; O2SAT 100
== END 2023-08-23 10:06 | disposition home or self-care (01) ==
LOC: SC 10:05
PROVIDERS: ATTEND Nurse Practitioner Family
DX: G47.33 Obstructive sleep apnea (adult) (pediatric) (principal); E66.9 Obesity, unspecified; Z68.32 Body mass index [BMI] 32.0-32.9, adult
CPT/HCPCS: 99212; 99213

== ENCOUNTER 2023-11-26 16:25 | Emergency (ER) | payer OTHER ==
--- NOTE | 2023-11-26 17:18 | XRAY Report ---
PROCEDURE: Chest 2V INDICATIONS: cough TECHNIQUE: 2 views of the chest were acquired. COMPARISON: None. FINDINGS: Surgical changes and devices: None. Lungs and pleura: No pleural effusions or pneumothorax. Lungs are clear. Mediastinum: Mediastinal contours appear normal. Heart size is normal. Bones and chest wall: No suspicious bony lesions. Overlying soft tissues appear unremarkable. IMPRESSION: No acute cardiopulmonary process. Reviewed by: Ashely Fontenot MD on 11/26/2023 5:17 PM PDT Approved by: Ashely Fontenot MD on 11/26/2023 5:17 PM PDT Station ID: [id number]
[2023-11-26 17:41] LABS: B. PARAPERTUSSIS- RESP PCR PAN NOT DETECTED; B. PERTUSSIS- RESP PCR PANEL NOT DETECTED; C. PNEUMONIAE- RESP PCR PANEL NOT DETECTED; CORONAVIRUS 229E-RESP PCR NOT DETECTED; CORONAVIRUS HKU1-RESP PCR NOT DETECTED; CORONAVIRUS NL63-RESP PCR NOT DETECTED; CORONAVIRUS OC43-RESP PCR NOT DETECTED; HUMAN METAPNEUMOVIRUS NOT DETECTED; INFLUENZA A- RESP PCR PANEL NOT DETECTED; INFLUENZA B - RESP PCR PANEL DETECTED; M. PNEUMONIAE- RESP PCR PANEL NOT DETECTED; PARAINFLUENZA VIRUS 1 NOT DETECTED; PARAINFLUENZA VIRUS 2 NOT DETECTED; PARAINFLUENZA VIRUS 3 NOT DETECTED; PARAINFLUENZA VIRUS 4 NOT DETECTED; RHINOVIRUS/ENTEROVIRUS NOT DETECTED; RSV- RESP PCR PANEL NOT DETECTED; SARS-CoV-2 -RESP PCR PANEL NOT DETECTED
--- NOTE | 2023-11-26 17:58 | ED Physician Documentation ---
PD HPI URI - Stated complaint Stated Complaint: MUNROE/ABD PX/TIGHT CHEST - Chief complaint Chief Complaint: Resp - History obtained from History obtained from: Patient - History of Present Illness Timing - onset: How many days ago (5) Timing duration: Days (5) Timing details: Gradual onset Pain level max: 0 Pain level now: 0 Associated symptoms: Fever, Nasal congestion, Rhinorrhea, Sore throat, Dry cough. No: Ear pain Contributing factors: Sick contact Recently seen: Not recently seen - Additional information Additional information: Patient is a 33-year-old female who presents to the emergency department with cough, congestion, body aches ongoing for the past 5 days. She states negative COVID test at home. Tmax 100.5. Denies any possibility of . No difficulty breathing, speaking or swallowing. 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 : None HEENT: None Psych: Anxiety Musculoskeletal: None Derm: None - Past Surgical History Past Surgical History: Yes /CERTIFIED ANESTHESIOLOGIST ASSISTANT: section - Present Medications Home Medications: Ambulatory Orders Medication Instructions Recorded Confirmed Sertraline [Zoloft] 50 mg PO DAILY 03/22/21 11/26/23 Albuterol Sulf [Ventolin Hfa 1 - 2 puffs INH Q4HR PRN #1 each 11/26/23 Inhaler] - Allergies Allergies/Adverse Reactions: Allergies Allergy/AdvReac Type Severity Reaction Status Date / Time nickel Allergy Rash Verified 11/26/23 16:40 BEE STING Allergy Anaphylaxis Uncoded 11/26/23 16:40 - Social History Does the pt smoke?: No Smoking Status: Never smoker Does the pt drink ETOH?: Yes Does the pt have substance abuse?: No - Immunizations Immunizations are current?: Yes - POLST Patient has POLST: No PD ED PE NORMAL - Vitals Vital signs reviewed: Yes - General General: Alert and oriented X 3, No acute distress - HEENT HEENT: PERRL, Ears normal, Moist mucous membranes, Pharynx benign - Neck Neck: Supple, no meningeal sign - Cardiac Cardiac: RRR, Strong equal pulses - Respiratory Respiratory: Clear bilaterally, Other (Mild diminished breath sounds bilaterally) - Abdomen Abdomen: Soft, Non tender, Non distended - Derm Derm: Warm and dry - Neuro Neuro: Alert and oriented X 3 - Psych Psych: Normal mood, Normal affect Results - Vitals Vitals: Vital Signs - 24 hr 11/26/23 11/26/23 11/26/23 16:37 18:06 18:35 Temperature 36.5 C 36.4 C L Heart Rate 77 84 75 Respiratory 15 18 16 Rate Blood Pressure 144/96 H 141/90 H O2 Saturation 99 100 Oxygen O2 Source Room air - Labs Labs: Laboratory Tests 11/26/23 16:44 Nasal Adenovirus (PCR) NOT DETECTED Nasal B. parapertussis DNA (PCR) NOT DETECTED Nasal Coronavir 229E PCR NOT DETECTED Nasal Coronavir HKU1 PCR NOT DETECTED Nasal Coronavir NL63 PCR NOT DETECTED Nasal Coronavir OC43 PCR NOT DETECTED Nasal Enterovir/Rhinovir PCR NOT DETECTED Nasal Influenza B PCR DETECTED A Nasal Influenza A PCR NOT DETECTED Nasal Parainfluen 1 PCR NOT DETECTED Nasal Parainfluen 2 PCR NOT DETECTED Nasal Parainfluen 3 PCR NOT DETECTED Nasal Parainfluen 4 PCR NOT DETECTED Nasal RSV (PCR) NOT DETECTED Nasal B.pertussis DNA PCR NOT DETECTED Nasal C.pneumoniae (PCR) NOT DETECTED Rajinder Human Metapneumo PCR NOT DETECTED Nasal M.pneumoniae (PCR) NOT DETECTED Nasal SARS-CoV-2 (PCR) NOT DETECTED - Rads (name of study) Chest x-ray Relevant Findings:: Final report received, See rad report PD Medical Decision Making - ED course Complexity details: reviewed results, re-evaluated patient, considered differential, d/w patient ED course: Patient is well-appearing, nontoxic. Afebrile. No significant findings on chest x-ray. Respiratory PCR positive for influenza B. Has been sick greater than 5 days now, not a candidate for Tamiflu. Will continue supportive care and have her follow-up with her doctor. She did receive a breathing treatment here and feels like that helped her breathing. Will prescribe albuterol for home. Patient counseled regarding signs and symptoms for which I believe and urgent re-evaluation would be necessary. Patient with good understanding of and agreement to plan and is comfortable going home at this time This document was made in part using voice recognition software. While efforts are made to proofread this document, sound alike and grammatical errors may occur. Departure - Departure Disposition: 01 Home, Self Care Clinical Impression: Influenza B Condition: Good Instructions: ED Flu Follow-Up: Ela Veloz MD [Primary Care Provider] - Within 1 week Prescriptions: Albuterol Sulf [Ventolin Hfa Inhaler] 1 - 2 puffs INH Q4HR PRN #1 each PRN Reason: Shortness Of Air/Wheezing Comments: You have tested positive for influenza B today. Your prescription was sent to [facility] in [place]. You can use Motrin or Tylenol as needed for fevers and bodyaches. Make sure you are drinking plenty of fluids at home. Please return if you worsen. Forms: PCP List Discharge Date/Time: 11/26/23 18:36
[2023-11-26] MEDS: ALBUTEROL NEB 2.5 MG/3 ML INH STA (18:04)
[2023-11-26 18:40] VITALS: BP 141/90; O2SAT 100
== END 2023-11-26 18:36 | disposition home or self-care (01) ==
LOC: ED 16:25
DX: J10.1 Influenza due to other identified influenza virus with other respiratory manifestations (principal)
CPT/HCPCS: 87633; 94640; 99283; 99284

== ENCOUNTER 2023-12-29 11:42 | Emergency (ER) | payer OTHER ==
[2023-12-29 12:04] VITALS: O2SAT 100
--- NOTE | 2023-12-29 13:20 | ED Physician Documentation ---
History of Present Illness - Stated complaint Stated Complaint: LT EAR PX/CANT HEAR - Chief complaint Chief Complaint: Heent - History obtained from History obtained from: Patient - History of Present Illness Timing: Today Pain level max: 5 Pain level now: 5 - Additonal information Additional information: 33-year-old female presents to the emergency department with left ear pain for the past 2 to 3 days. She states that she tried to pop her ears and since that time the pain has been worse. Has not had any drainage from the ear. She does wear earplugs at work. Denies any possibility of . Not or breast-feeding. No fevers. No chills. No rhinorrhea, cough, congestion. No sore throat. Review of Systems Constitutional: denies: Fever, Chills Respiratory: denies: Cough GI: denies: Vomiting, Diarrhea Skin: denies: Rash PD PAST MEDICAL HISTORY - Past Medical History Cardiovascular: None Respiratory: None Neuro: Migraines Endocrine/Autoimmune: None GI: None [employer]: None : None HEENT: None Psych: Anxiety Musculoskeletal: None Derm: None - Past Surgical History Past Surgical History: Yes /[employer]: section - Present Medications Home Medications: Ambulatory Orders Medication Instructions Recorded Confirmed Sertraline [Zoloft] 50 mg PO DAILY 03/22/21 12/29/23 Ciproflox/Dexameth Otic Drops 4 drops LEFTEAR BID #1 each 12/29/23 [Ciprodex] - Allergies Allergies/Adverse Reactions: Allergies Allergy/AdvReac Type Severity Reaction Status Date / Time nickel Allergy Rash Verified 12/29/23 11:56 BEE STING Allergy Anaphylaxis Uncoded 12/29/23 11:56 - Social History Does the pt smoke?: No Smoking Status: Never smoker Does the pt drink ETOH?: Yes Does the pt have substance abuse?: No - Immunizations Immunizations are current?: Yes - POLST Patient has POLST: No PD ED PE NORMAL - Vitals Vital signs reviewed: Yes - General General: Alert and oriented X 3, No acute distress - HEENT HEENT: Moist mucous membranes, Pharynx benign, Other (Right ear is normal. Left ear has an obscured tympanic membrane due to swelling in the ear canal with white discharge. No swelling to the pinna. No mastoid tenderness.) - Neck Neck: Supple, no meningeal sign, No adenopathy - Cardiac Cardiac: RRR - Respiratory Respiratory: No respiratory distress, Clear bilaterally - Derm Derm: Warm and dry - Neuro Neuro: Alert and oriented X 3 Results - Vitals Vitals: Vital Signs - 24 hr 12/29/23 12/29/23 11:54 13:35 Temperature 36.5 C 37.2 C Heart Rate 73 73 Respiratory 16 18 Rate Blood Pressure 155/82 H 150/99 H O2 Saturation 100 100 Oxygen O2 Source Room air PD Medical Decision Making - ED course Complexity details: considered differential, d/w patient ED course: 33-year-old female with a left acute otitis externa. We will place on Ciprodex for home. No evidence of necrotizing otitis externa. No mastoid tenderness. Unable to visualize tympanic membrane, recommend she follow-up with her doctor in about a week for repeat evaluation. Patient counseled regarding signs and symptoms for which I believe and urgent re-evaluation would be necessary. Patient with good understanding of and agreement to plan and is comfortable going home at this time This document was made in part using voice recognition software. While efforts are made to proofread this document, sound alike and grammatical errors may occur. Departure - Departure Disposition: Home, Self Care Clinical Impression: Otitis externa Qualifiers: Otitis externa type: unspecified type Chronicity: acute Laterality: left Qu alified Code(s): H60.502 - Unspecified acute noninfective otitis externa, left ear Condition: Good Instructions: ED Otitis Externa Follow-Up: your,doctor in 1 week for recheck [Other] Prescriptions: Ciproflox/Dexameth Otic Drops [Ciprodex] 4 drops LEFTEAR BID #1 each Comments: Your prescription was sent to [facility] in [place]. Please use the drops as prescribed. Please follow-up with your doctor in 1 week for recheck. Please return if you worsen. Forms: PCP List Discharge Date/Time: 12/29/23 13:36
[2023-12-29 13:38] VITALS: BP 150/99
== END 2023-12-29 13:36 | disposition home or self-care (01) ==
LOC: ED 11:42
DX: H60.502 Unspecified acute noninfective otitis externa, left ear (principal)
CPT/HCPCS: 99282; 99283